=== PATIENT | female | born 1930 | race Caucasian/White ===

== ENCOUNTER 2019-09-29 15:29 | Inpatient (IN) ==
[2019-09-29] MEDS ORDERED: NORCO-5 PO ONE ×2 (16:01→16:51)
--- NOTE | 2019-09-29 16:30 | Diag Imaging Result Doc PS360 ---
EXAM: CT THORAX W/O CONTRAST HISTORY: fall TECHNIQUE: CT chest without contrast COMPARISON: None. FINDINGS: There is a small right-sided pleural effusion measuring 2.9 cm posteriorly and inferiorly in the midline. Trace left pleural fluid. The heart is enlarged. Prominent atherosclerosis. The esophagus is dilated and contains fluid. No pneumothoraces. There are tiny nodules scattered bilaterally. There is basilar atelectasis. Small sternal fracture. IMPRESSION: 1.Small sternal fracture, but no other injury 2.Cardiomegaly with small effusions 3.Tiny nonspecific scattered lung nodules. This exam was performed using automated exposure control, adjustment of mA or kV according to patient size, and/or use of iterative reconstruction technique. Electronically signed by Fabian Ruth 09/29/2019 4:27 PM
--- NOTE | 2019-09-29 16:33 | Diag Imaging Result Doc PS360 ---
EXAM : CT HEAD/C-SPINE W/O CONTRAST HISTORY: fall face injury TECHNIQUE: 1. CT head without contrast 2. CT cervical spine without contrast COMPARISON: 06/15/2018 FINDINGS: Head: No parenchymal hemorrhage. No epidural or subdural hematoma. No subarachnoid hemorrhage. There is atrophy with chronic microvascular ischemic changes. No mass identified on this noncontrasted exam. No hydrocephalus. No skull fracture. Cervical spine: There is good alignment to the cervical spine. No precervical soft tissue swelling. No subluxation. No fracture. IMPRESSION: Head: No hemorrhage. No injury. Cervical spine: No acute fracture. This exam was performed using automated exposure control, adjustment of mA or kV according to patient size, and/or use of iterative reconstruction technique. Electronically signed by Fabian Ruth 09/29/2019 4:31 PM
--- NOTE | 2019-09-29 16:39 | Diag Imaging Result Doc PS360 ---
EXAM: CT MAXILLOFACIAL(SINUS) W/O CO HISTORY: fall injury TECHNIQUE: CT face without contrast COMPARISON: None. FINDINGS: There are small air-fluid levels in the maxillary sinuses. A small amount of mucosal thickening is in the right sphenoid sinus. No fracture or dislocation. Prominent atherosclerosis in the carotid bulbs. IMPRESSION: No acute bony injury. Electronically signed by Fabian Ruth 09/29/2019 4:37 PM
--- NOTE | 2019-09-29 17:01 | Diag Imaging Result Doc PS360 ---
EXAM: SHOULDER-RIGHT - 09/29/2019 HISTORY: fall injury TECHNIQUE: Right shoulder three views COMPARISON: 06/15/2018 FINDINGS: Exam is suboptimal due to the lack of an external rotation view. There is no discrete fracture or dislocation identified. There is an old fracture deformity mid shaft of the clavicle noted. IMPRESSION: No discrete fracture or dislocation. And external rotation view is recommended, however. Electronically signed by Sridhar Ramirez 09/29/2019 4:58 PM
--- NOTE | 2019-09-29 18:00 | PROVIDER DOCUMENTATION ---
This chart was entered by Amparo Aguilera Scribe, acting as scribe for Bruce Thurman MD. HPI-Head Injury - General Chief Complaint: Fall Stated Complaint: FALL Time Seen by Provider: 09/29/19 15:49 Source: patient, family Allergies/Adverse Reactions: Patient Allergies Allergy/AdvReac Type Severity Reaction Status Date / Time Iodinated Contrast Media Allergy Unknown Verified 06/23/18 08:21 [IV Dye] Home Medications: Home Medication List Medication Instructions Recorded Confirmed Last Taken Type Cetirizine [Zyrtec] 10 mg PO DAILY 09/29/19 09/29/19 Unknown History Enalapril Maleate 20 mg PO DAILY 09/29/19 09/29/19 Unknown History Furosemide [Lasix] 40 mg PO DAILY 09/29/19 09/29/19 Unknown History Nebivolol HCl [Bystolic] 20 mg PO DAILY 09/29/19 09/29/19 Unknown History Potassium Chloride 20 meq PO DAILY 09/29/19 09/29/19 Unknown History Tramadol [Ultram] 50 mg PO BID 09/29/19 09/29/19 Unknown History Warfarin [Coumadin] 3 mg PO DAILY 09/29/19 09/29/19 Unknown History - History of Present Illness-Head Injury Nature of Presenting Problem: Patient is a 89 year old female who presents to the ED via EMS after having a head injury. States she was walking with her walker and her knees locked and she fell. Denies LOC. States pain to right side face, right shoulder and chest. Report dizziness after fall. States she is on Warfarin. Head Injury Location: reports: other (right side face) Other injuries associated with incident:: reports: chest, RUE (shoulder) Quality of Pain: reports: aching Severity: reports: mild Onset/Duration: reports: just prior to arrival Timing: reports: still present Method of Injury: reports: fell Loss of Consciousness: no loss of consciousness Injury Associated Symptoms: reports: dizziness Locality of Occurance: Home Similar Symptoms Previously?: No Recently seen or treated by another doctor?: No Review of Systems - Adult - REVIEW OF SYSTEMS - ADULT Constitutional: reports: no symptoms reported Eyes: reports: no symptoms reported Ears, Nose, Mouth & Throat: reports: no symptoms reported Cardiovascular: reports: no symptoms reported Respiratory: reports: no symptoms reported Gastrointestinal: reports: no symptoms reported Genitourinary: reports: no symptoms reported Musculoskeletal: reports: see HPI, other (pain to right side face, right shoulder and chest). denies: back pain, neck pain Integumentary: reports: no symptoms reported Neurological: reports: see HPI, dizziness/vertigo (dizziness), other (head injury without LOC). denies: headache/migraines Psychiatric: reports: no symptoms reported Endocrine: reports: no symptoms reported Hematologic/Lymphatic: reports: no symptoms reported Allergic/Immunologic: reports: no symptoms reported All Other Systems: Reviewed and Negative Past History - Adult - PAST MEDICAL HISTORY-ADULT Review of Records: reports: Old Records Reviewed, Nursing Assessment Review, Medications Reviewed, Social history reviewed & non-contributory. Major Childhood Illnesses: reports: denies history Cardiovascular: reports: A-Fib, HTN Respiratory: reports: denies history Gastrointestinal: reports: denies history Obstetrical/Gynecological: reports: denies history Genitourinary: reports: denies history Musculoskeletal: reports: other (neuropathy) Neurological: reports: denies history Endocrine/Immune: reports: denies history Other Conditions: reports: denies history - PRIOR SURGERIES/PROCEDURES Surgical/Procedure History: reports: hysterectomy, back/neck - IMMUNIZATION STATUS Childhood Immunizations: See Nurse Assessment Flu Vaccine: See Nurse Assessment - FAMILY HISTORY Family History: reviewed, not pertinent - SOCIAL HISTORY Smoking: denies Substance Use: denies Living Situation: family Physical Exam- Neurological - Physical Exam-Neuro Initial Vital Signs Reviewed: Yes General Appearance: alert, no apparent distress. negative: lethargic HENMT: moist mucous membranes, other (abrasion to right cheek, right eyebrow, and right side of nose. ecchymosis and swelling to right eyebrow.). negative: angioedema Head Injury: ecchymosis (right eyebrow), swelling (right eyebrow), other (abrasion to right cheek, right eyebrow, and right side of nose). negative: active bleeding Neck: normal inspection. negative: limited range of motion, tender lateral Respiratory: lungs clear, normal breath sounds, other (anterior chest wall tenderness). negative: crackles Cardiovascular: normal peripheral pulses, regular rate, rhythm. negative: tachycardia Abdominal Exam: normal bowel sounds, non tender, soft. negative: guarding Extremity: tenderness (right posterior shoulder and right scapula). 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 negative: facial droop Integumentary: abrasion(s) (abrasion to right cheek, right eyebrow, and right side of nose.), ecchymosis (right eyebrow), swelling (right eyebrow). negative: laceration(s) Psych/Mental Status: normal mood/affect, oriented x 3. negative: anxious Progress - PLAN OF CARE/RESULTS Progress/Plan/Lab Results: Vital Signs - 8 hr 09/29/19 15:31 09/29/19 16:41 09/29/19 17:50 Temperature 97.9 F Pulse Rate 96 H 88 92 H Respiratory Rate 16 18 12 Blood Pressure 184/109 182/122 165/109 O2 Sat by Pulse Oximetry 98 94 L 96 Orders Category Date Time Status CT HEAD/C-SPINE W/O CONTRAST [CT] Stat Exams 09/29/19 15:[address] MAXILLOFACIAL(SINUS) W/O CO [CT] Stat Exams 09/29/19 16:[address] THORAX W/O CONTRAST [CT] Stat Exams 09/29/19 16:00 Completed SHOULDER 1 VIEW RIGHT [RAD] Stat Exams 09/29/19 18:07 Completed SHOULDER-RIGHT [RAD] Stat Exams 09/29/19 16:02 Completed Hydrocodone/APAP 5 mg/325 mg [[place]-5] Med 09/29/19 16:01 Discontinued 1 each PO NOW ONE Hydrocodone/APAP 5 mg/325 mg [[place]-5] Med 09/29/19 16:51 Discontinued 1 each PO NOW ONE - XRAY 1 XRAY: Right XRAY Study: Shoulder Impression: See EMR Report ( EXAM: SHOULDER-RIGHT - 09/29/2019 HISTORY: fall injury TECHNIQUE: Right shoulder three views COMPARISON: 06/15/2018 FINDINGS: Exam is suboptimal due to the lack of an external rotation view. There is no discrete fracture or dislocation identified. There is an old fracture deformity mid shaft of the clavicle noted. IMPRESSION: No discrete fracture or dislocation. And external rotation view is recommended, however. Electronically signed by Sridhar Ramirez 09/29/2019 4:58 PM 09/29/19 [id number] Interpreting Physician: Sridhar Ramirez MD Dictated Date/Time: 09/29/19 3916 cc: Bruce Thurman MD; None,PCP) - CT/MRI 1 CT Study: Sinuses Impression: See EMR Report ( EXAM: CT MAXILLOFACIAL(SINUS) W/O CO HISTORY: fall injury TECHNIQUE: CT face without contrast COMPARISON: None. FINDINGS: There are small air-fluid levels in the maxillary sinuses. A small amount of mucosal thickening is in the right sphenoid sinus. No fracture or dislocation. Prominent atherosclerosis in the carotid bulbs. IMPRESSION: No acute bony injury. Electronically signed by Fabian Ruth 09/29/2019 4:37 PM 09/29/19 1637 Interpreting Physician: Fabian Ruth MD Dictated Date/Time: 09/29/19 1634 cc: Bruce Thurman MD; None,PCP) 2 CT Study: Thorax Impression: See EMR Report ( EXAM: CT THORAX W/O CONTRAST HISTORY: fall TECHNIQUE: CT chest without contrast COMPARISON: None. FINDINGS: There is a small right-sided pleural effusion measuring 2.9 cm posteriorly and inferiorly in the midline. Trace left pleural fluid. The heart is enlarged. Prominent atherosclerosis. The esophagus is dilated and contains fluid. No pneumothoraces. There are tiny nodules scattered bilaterally. There is basilar atelectasis. Small sternal fracture. IMPRESSION: 1.Small sternal fracture, but no other injury 2.Cardiomegaly with small effusions 3.Tiny nonspecific scattered lung nodules. This exam was performed using automated exposure control, adjustment of mA or kV according to patient size, and/or use of iterative reconstruction technique. Electronically signed by Fabian Ruth 09/29/2019 4:27 PM 09/29/19 1627 Interpreting Physician: Fabian Ruth MD Dictated Date/Time: 09/29/19 1623 cc: Bruce Thurman MD; None,PCP) 3 CT Study: Cervical Spine, Head Impression: See EMR Report ( EXAM : CT HEAD/C-SPINE W/O CONTRAST HISTORY: fall face injury TECHNIQUE: 1. CT head without contrast 2. CT cervical spine without contrast COMPARISON: 06/15/2018 FINDINGS: Head: No parenchymal hemorrhage. No epidural or subdural hematoma. No subarachnoid hemorrhage. There is atrophy with chronic microvascular ischemic changes. No mass identified on this noncontrasted exam. No hydrocephalus. No skull fracture. Cervical spine: There is good alignment to the cervical spine. No precervical soft tissue swelling. No subluxation. No fracture. IMPRESSION: Head: No hemorrhage. No injury. Cervical spine: No acute fracture. This exam was performed using automated exposure control, adjustment of mA or kV according to patient size, and/or use of iterative reconstruction technique. Electronically signed by Fabian Ruth 09/29/2019 4:31 PM 09/29/19 1631 Interpreting Physician: Fabian Ruth MD Dictated Date/Time: 09/29/19 1628 cc: Bruce Thurman MD; None,PCP) - CONSULTS/PCP/HOSPITALIST Notification #1 *Consult/PCP/Hospitalist*: Dr. Churchill Time Discussed: 18:53 Reason/Comments: fall, hypertenion Consult Disposition: Admit Departure - Departure Date of Disposition Decision: 09/29/19 Time of Disposition Decision: 18:58 DIAGNOSIS: Sternal fracture, Fall, Hypertension Disposition: ADMITTED INPATIENT 09 Certified Medical Emergency: Emergent Condition: Good Referrals and Follow-Ups: None,PCP [Primary Care Provider] - - Critical Care Note This patient required my direct & personal management of CC.: No Attestation - Physician/ CHRISTAL Attestation Patient care was provided by Advanced Practice Provider:: No The physician spent face to face time with patient:: Yes Advanced Practice Provider documentation review:: Supervising physician onsite and consulted in the evaluation and care of this patient. The physician did have a face to face encounter with the patient. This chart was documented by the indicated scribe, (Amparo Aguilera Scribe) and accurately reflects the services I performed and decisions made by me, Bruce Thurman MD, as attested by the provider's signature.
--- NOTE | 2019-09-29 18:45 | Diag Imaging Result Doc PS360 ---
EXAM: SHOULDER 1 VIEW RIGHT - 09/29/2019 HISTORY: pain TECHNIQUE: Right shoulder one view COMPARISON: Prior right shoulder radiographs of 09/29/2019 FINDINGS: Exam consists of an AP external rotation view with the upper arm mildly extended. There is no fracture or dislocation identified. IMPRESSION: No evidence of fracture or dislocation. Electronically signed by Sridhar Ramirez 09/29/2019 6:42 PM
[2019-09-29] MEDS ORDERED: MORPHINE IV ONE (22:37)
[2019-09-30 08:17] LABS: URINE SOURCE CLEAN CATCH
[2019-09-30 08:20] LABS: BILIRUBIN URINE NEGATIVE (NEGATIVE); BLOOD URINE MODERATE (NEGATIVE); COLOR YELLOW; GLUCOSE URINE NEGATIVE (NEGATIVE); KETONE URINE NEGATIVE (NEGATIVE); LEUKOCYTES URINE NEGATIVE (NEGATIVE); NITRITE URINE NEGATIVE (NEGATIVE); PH URINE 6.5; PROTEIN URINE 70 mg/dL (NEGATIVE); SP GRAVITY URINE 1.015; TURBIDITY URINE CLEAR (CLEAR); UROBILINOGEN URINE NORMAL (NORMAL)
[2019-09-30 08:21] LABS: UR EPITHELIAL CELLS <10 /HPF (<10); URINE BACTERIA NEGATIVE /HPF; URINE RBC TNTC /HPF (<10); URINE WBC <10 /HPF (<10)
[2019-09-30] MEDS: MORPHINE IV PRN ×3 (08:47→17:36)
[2019-09-30 09:29] LABS: BASO# 0.02 X1000 (0.0-0.2); BASO% 0.3 % (0.0-0.8); EOS# 0.02 X1000 (0.0-0.7); EOS% 0.3 % (0.0-10.0); HEMATOCRIT 35.8 % (37.0-47.0); HEMOGLOBIN 11.1 g/dL (12.0-16.0); IMM GRAN# 0.03 X1000 (0.0-0.04); IMM GRAN% 0.4 % (0.0-0.5); LYMPH# 0.53 X1000 (1.2-3.4); LYMPH% 7.9 % (20.5-51.1); MCH 30.4 PG (27-31); MCV 98.1 FL (81-99); MONO% 13.5 % (1.7-9.3); MPV 10.4 FL (7.4-10.4); NEUT# 5.19 X1000 (1.4-6.5); NEUT% 77.6 % (42.2-75.2); PLT 90 X1000 (130-400); RBC 3.65 XMIL (4.2-5.4); RDW 14.6 % (11.5-14.5); WBC 6.69 X1000 (4.8-10.8)
[2019-09-30 09:34] LABS: CALCIUM 8.7 mg/dL (8.8-10.2); CREATININE 1.1 mg/dL (0.5-0.9)
[2019-09-30 09:36] LABS: INR 1.77; PROTIME 21.6 Seconds (11.0-16.0)
[2019-09-30] MEDS ORDERED: ZOFRAN IV PRN ×2 (09:41→16:44)
[2019-09-30] MEDS ORDERED: NS 1,000 ML IV ONE (09:42)
[2019-09-30 17:31] LABS: HEMATOCRIT 37.1 % (37.0-47.0); HEMOGLOBIN 11.9 g/dL (12.0-16.0)
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
[2019-09-30] MEDS: ULTRAM PO SCH (20:26)
[2019-09-30] MEDS ORDERED: ULTRAM PO SCH (21:00)
[2019-09-30 23:07] LABS: HEMATOCRIT 35.8 % (37.0-47.0); HEMOGLOBIN 11.4 g/dL (12.0-16.0)
--- NOTE | 2019-10-01 02:16 | HISTORY AND PHYSICAL ---
ADDENDUM: The patient had a ground-level fall, with which she did not pass out. She just fell over, but she hit the ground very hard on the right side of her face and her right shoulder. She sustained a laceration. In any case, she came in for evaluation. Laceration was sutured. She was found to have a sternal fracture, which was not completely a [id number] fracture. It was in the posterior portion and distal portion of her sternum. Although it is comminuted or at least there is a free edge, there is no evidence of hematoma or mediastinal damage; however, she is coagulopathic on Coumadin. We are going to monitor her for pain control, make sure there is no bleeding. I discussed the case briefly with Dr. Doss, as did the nurse practitioner. We are going to transfer her to the main hospital for closer monitoring, although at this point there are probably going to be nonsurgical measures. I have held her warfarin but I have not reversed her at this point. We will keep an eye on her hemoglobin and hematocrit, and her electrolytes. This was a [id number] encounter note with EHSAN Partida, and we also discussed the case with Dr. Doss and Dr. Carlin. cc: Kd Patrick MD
[2019-10-01] MEDS: MORPHINE IV PRN (02:21)
[2019-10-01 05:30] LABS: INR 1.78; PROTIME 21.1 Seconds (11.0-16.0)
[2019-10-01 05:56] LABS: CALCIUM 8.6 mg/dL (8.8-10.2); CREATININE 1.3 mg/dL (0.5-0.9); POTASSIUM 4.1 mmol/L (3.5-5.1)
[2019-10-01 06:12] LABS: BASO# 0.02 X1000 (0.0-0.2); BASO% 0.3 % (0.0-0.8); EOS# 0.16 X1000 (0.0-0.7); EOS% 2.1 % (0.0-10.0); HEMATOCRIT 38.2 % (37.0-47.0); IMM GRAN# 0.02 X1000 (0.0-0.04); IMM GRAN% 0.3 % (0.0-0.5); LYMPH# 0.88 X1000 (1.2-3.4); LYMPH% 11.3 % (20.5-51.1); MCH 31.3 PG (27-31); MCHC 31.4 g/dL (33-37); MCV 99.7 FL (81-99); MONO# 1.24 X1000 (0.11-0.59); NEUT# 5.45 X1000 (1.4-6.5); PLT 76 X1000 (130-400); RBC 3.83 XMIL (4.2-5.4); RDW 14.8 % (11.5-14.5); WBC 7.77 X1000 (4.8-10.8)
--- NOTE | 2019-10-01 07:22 | GENERAL SURGERY CONSULTATION ---
DATE: 09/30/2019 REQUESTING PHYSICIAN: Dr. Patrick. REASON FOR CONSULTATION: Consult is concerning a fall from standing with sternal fracture. HISTORY OF PRESENT ILLNESS: An 89-year-old female who apparently fell from standing while at home. She was seen in the emergency department and had multiple imaging done after her fall. She apparently struck her head. The only thing noted on the imaging was that she had a sternal fracture. She is currently complaining of pain and some pain in her shoulder but otherwise is doing okay hemodynamically. I was asked to weigh an opinion. PAST MEDICAL HISTORY: Includes atrial fibrillation, neuropathy, and hypertension. PAST SURGICAL HISTORY: Includes hysterectomy, spinal fusion, osteomyelitis, and previous punctured lung. SOCIAL HISTORY: Nonsmoker. ALLERGIES: Iodinated contrast media. CURRENT HOME MEDICATIONS: Reviewed. Of note, she is on Coumadin. FAMILY HISTORY: Reviewed with the patient and noncontributory. REVIEW OF SYSTEMS: A full 14 systems were reviewed and negative except as specified in the HPI. PHYSICAL EXAMINATION: Vital Signs: The patient is currently afebrile. Her vital signs are stable. General Examination: No acute distress. HEENT: Normocephalic, atraumatic. Pupils equal, round, and reactive to light. There is some ecchymosis noted by the right eye and maxilla. Neck: Supple. Trachea midline. Cardiovascular: Irregularly irregular. Lungs: Grossly clear. Chest Wall: Some tenderness noted in the sternum. Abdomen: Soft, nontender, nondistended. Extremities: Moves all extremities. Neurologic: Grossly intact. Skin: Ecchymoses noted as above. Vascular: All extremities perfused. Neurologic: Grossly intact. LABORATORY DATA: White blood cell count is 6, hematocrit is 37, platelet count 90,000. Remainder of labs reviewed. Imaging reviewed and noted above. ASSESSMENT/PLAN: An 89-year-old female with fall from standing with sternal fracture. Sternal fracture. At this time, I agree with admission. She has an electrocardiogram and echocardiogram ordered. She is going to be on remote telemetry. We will just follow up with those. I suspect she is going to be fine and we will be able to discharge in the near future but we will just need to monitor her. I appreciate the consult. cc: Abad Doss MD
[2019-10-01] MEDS ORDERED: LASIX PO SCH (09:00)
[2019-10-01] MEDS ORDERED: KLOR-CON PO SCH (09:00)
[2019-10-01] MEDS ORDERED: BYSTOLIC PO SCH (09:00)
[2019-10-01] MEDS ORDERED: ZYRTEC PO SCH (09:00)
[2019-10-01] MEDS ORDERED: VASOTEC PO SCH ×2 (09:00)
--- NOTE | 2019-10-01 09:22 | ECHO REPORT ---
ORDER DATE: 09/30/2019 MEASUREMENTS: Septal thickness 1.1, left ventricular internal diameter diastole 3.8. Left atrium 5.3. Aortic root 2.8. SUMMARY: 1. Technically difficult study. 2. Moderate fibrocalcific changes of aortic valve demonstrated with reduced aortic valve leaflet mobility demonstrated. Doppler of aortic valve is suboptimal. Based on 2-dimensional images, aortic stenosis appears to be probably moderate but is not severe. Mitral annular calcification is demonstrated with mild to moderate mitral regurgitation. Tricuspid valve is without evidence of structural abnormality while pulmonic valve is not well demonstrated. There is moderate to severe tricuspid regurgitation. The estimated systolic PA pressure by Doppler is 50 to 55 mmHg suggesting moderate pulmonary hypertension. The aortic root is normal size. 3. Normal left ventricular chamber size with mild concentric left hypertrophy is suggested on 2- dimensional images. Estimated left ejection fraction appears to be at least 65%. No regional wall motion abnormalities are evident. Left atrium is moderate to severely enlarged. The right atrium is moderately enlarged. Right ventricle is normal size with grossly preserved right ventricular systolic function. 4. No pericardial effusion. 5. Atrial fibrillation during study. cc: MD Kd Desir MD
--- NOTE | 2019-10-01 09:47 | GENERAL SURGERY PROGRESS NOTE ---
DATE: 10/01/2019 SUBJECTIVE: Patient seems to be doing okay. She had some cramping in her legs, but otherwise is doing fine. OBJECTIVE: Vital Signs: Patient is currently afebrile. Her vital signs are stable. General: No acute distress. HEENT: Some ecchymosis noted to the right side of her face, but otherwise atraumatic. Pupils equal, round, reactive to light. Mucous membranes moist. Oropharynx benign. Neck: Supple. Trachea midline. Cardiovascular: Regular rate and rhythm. Lungs: Grossly clear. Some chest wall tenderness. Abdomen: Soft, nontender, nondistended. Extremities: Moves all extremities. Neurologic: Grossly intact. Skin: No signs of jaundice but bruising as noted above. LABORATORY: Currently pending. ASSESSMENT AND PLAN: An 89--year-old female status post fall from standing with blunt chest trauma and sternal fracture. 1. Sternal fracture. At this time, continue supportive care. She does have EKGs an echos ordered. We will follow up with those results. Otherwise, I think she is doing well, and if she remains without any cardiac abnormalities, she can likely be discharged here soon. cc: Abad Doss MD
[2019-10-01] MEDS: LASIX PO SCH (09:49)
[2019-10-01] MEDS: KLOR-CON PO SCH (09:50)
[2019-10-01] MEDS: ZYRTEC PO SCH (09:50)
[2019-10-01] MEDS: BYSTOLIC PO SCH (09:53)
[2019-10-01] MEDS: ULTRAM PO SCH ×2 (11:21→21:51)
--- NOTE | 2019-10-01 13:33 | PROGRESS NOTE ---
DATE: 10/01/2019 SUBJECTIVE: This patient is feeling better. She is still complaining of some chest pain but she is not having cough, nausea, vomiting, or hemoptysis. Echocardiogram has been done and did not show any acute problem. Pending EKG which has been ordered again. I had a conversation with the patient and the family members at the bedside. She has been on warfarin and she has been on this treatment for a very long time. It is a little bit worrisome if this patient starts falling more frequently due to possible life-threatening bleeding. They seem to understand that. The patient is completely awake, alert, and oriented x3. She is answering all my questions. She is hard of hearing. I do believe this patient can be discharged tomorrow. She seems to be medically stable, pending EKG. OBJECTIVE: Vital Signs: Temperature 97.5 degrees, pulse 102, respiratory rate 14, blood pressure 149/82, oxygen saturation 97% on 3 L of nasal cannula. HEENT: Head normocephalic. She does have a bruise to the right eye and periorbital area. She also has a small wound/laceration on the right side of her nose. PERRLA. Neck: Supple. No JVD. Central trachea. Chest: Tender to palpation at the level of the sternal area. She complains of a little bit of pain with deep inspiration but her lungs are clear. Cardiovascular: RRR. Abdomen: Soft, nontender, nondistended. No hepatosplenomegaly. Extremities: No edema, no clubbing, no cyanosis. Neurological Examination: The patient is alert. She is oriented x3. No focal deficits. Laboratory: WBCs 7.7, hemoglobin 12, hematocrit 38.2, and platelets 76,000. Sodium 139, potassium 4.1, chloride 103, bicarbonate 26, BUN 37, creatinine 1.3, glucose 127, calcium 8.6. ASSESSMENT AND PLAN: 1. Fall from a standing position with a sternal fracture. Surgery department on board and following this patient closely. Echocardiogram did not show any acute abnormality. Pending electrocardiogram. Chest CT scan seems to be stable, showing a small sternal fracture but no other injury, cardiomegaly with small effusion, and tiny nonspecific scattered lung nodules. For now, we will continue with pain medication. She looks stable. She is basically on her home medications and we will just keep an eye on her today. She used to be on warfarin which has been stopped for now but probably, we need to resume that probably tomorrow or the day after tomorrow. 2. Hypertension, stable. Continue with the same management. 3. History of atrial fibrillation. Like I mentioned before, we have stopped the warfarin for now. Hopefully, we are going to be able to restart this treatment soon. I discussed the case with the son at the bedside and also the patient. I suggested to stop the warfarin in the future if she is still falling or if she is doing this frequently. 4. She seems to be better. She is still complaining of some chest pain due to the sternal fracture. Echocardiogram did not show any acute issues. Pending electrocardiogram. I will monitor this patient one more night and hopefully tomorrow, she can be discharged and probably we can restart also her warfarin. cc: Ricardo Contreras MD
--- NOTE | 2019-10-01 17:44 | EKG Report ---
Test Performed on : 10/01/2019 11:30:00 AM Test Reason : Chest trauma Blood Pressure : / mmHG Vent. Rate : 098 BPM Atrial Rate : 416 BPM P-R Int : 000 ms QRS Dur : 086 ms QT Int : 340 ms P-R-T Axes : 000 -17 -07 degrees QTc Int : 434 ms Atrial fibrillation. Abnormal ECG When compared with ECG of 30-SEP-2019 18:09, (Unconfirmed) No significant change was found Confirmed by Yanira IZQUIERDO, Vamshi ([id number]) on 10/02/2019 8:31:11 AM
--- NOTE | 2019-10-02 06:29 | GENERAL SURGERY PROGRESS NOTE ---
DATE: 10/02/2019 SUBJECTIVE: Patient seems to be doing okay. She is resting. OBJECTIVE: Vital Signs: Patient is currently afebrile. Her vital signs are stable. General: No acute distress. HEENT: Normocephalic, atraumatic. Pupils equal, round, and reactive to light. Mucous membranes moist. Oropharynx benign. Neck: Supple. Trachea midline. Cardiovascular: Regular rate and rhythm. Lungs: Grossly clear. Chest wall still with some tenderness. Abdomen: Soft. Nontender. Nondistended. Extremities: Moves all extremities. Neurologic: Grossly intact. Skin: There are some bruises noted on the face. Vascular: All extremities perfused. LABORATORY: Reviewed from yesterday. EKG and echo were normal. ASSESSMENT AND PLAN: An 89-year-old female status post fall from standing with blunt chest trauma and sternal fracture. Sternal fracture. At this time, I think the patient has done relatively well. She can probably be discharged home and follow up with her primary care physician. cc: Abad Doss MD
--- NOTE | 2019-10-02 07:33 | EKG Report ---
Test Performed on : 09/30/2019 6:09:38 PM Test Reason : Fall,dizziness,afib Blood Pressure : / mmHG Vent. Rate : 107 BPM Atrial Rate : 084 BPM P-R Int : 000 ms QRS Dur : 084 ms QT Int : 342 ms P-R-T Axes : 000 -23 027 degrees QTc Int : 456 ms Atrial fibrillation. with rapid ventricular response. Nonspecific ST abnormality Abnormal ECG When compared with ECG of 30-NOV-2017 18:25, No significant change was found Confirmed by Yanira IZQUIERDO, Vamshi ([id number]) on 10/02/2019 8:28:06 AM
[2019-10-02 08:00] LABS: CREATININE 1.8 mg/dL (0.5-0.9)
[2019-10-02] MEDS: ZYRTEC PO SCH (09:46)
[2019-10-02] MEDS: BYSTOLIC PO SCH (09:46)
[2019-10-02] MEDS: ULTRAM PO SCH (09:46)
[2019-10-02] MEDS: KLOR-CON PO SCH (09:47)
[2019-10-02] MEDS: LASIX PO SCH (09:47)
--- NOTE | 2019-10-02 13:13 | PROGRESS NOTE ---
DATE: 10/02/2019 SUBJECTIVE: This morning, Ms. Portillo refers to be doing well. She denies any new complaints. She still has been hurting in the chest. OBJECTIVE: Vital Signs: Blood pressure is 147/81, pulse of 99, respiration are 17, temperature is 97.8 degrees. General Examination: Ms. Portillo is an 89-year-old, elderly, female. She is in bed. No distress. HEENT: Mucosa is pink and moist. Anicteric. Acyanotic. Neck: Supple. Chest: Good air entry bilaterally. There were no crepitations. No rhonchi. Cardiovascular: Regular rate and rhythm. No murmurs, no rubs, no gallops. GI: Abdomen is soft, nontender. Bowel sounds present. There is no hepatosplenomegaly. Extremities: No pedal edema. Distal pulses are present. SEAMER: The patient is awake, alert, and oriented. Musculoskeletal: Mild tenderness at the sternum. The patient also has tenderness mobilizing the right lower extremity, especially at the knee level. The knee is swollen and minimally tender but no erythematous changes over the skin. Laboratory Data: Chemistry shows creatinine of 1.8. The patient's echocardiogram showed an ejection fraction of 65%. ASSESSMENT: 1. Status post mechanical fall. 2. Hypertension. 3. History of atrial fibrillation, currently rate controlled. 4. Small sternal fracture due to blunt trauma to the chest, noted. 5. Left knee osteoarthritis. 6. Generalized weakness and deconditioning. Physical therapy has been consulted and patient was evaluated yesterday. 7. Acute on chronic kidney injury with creatinine up to 1.8. I have discontinued the patient's ARBs as well as the Lasix since she does not look volume overloaded to see if we avoid any more kidney injury. cc: Yariel Freitas MD
[2019-10-03] MEDS: ULTRAM PO SCH ×4 (00:26→22:33)
[2019-10-03 06:50] LABS: HEMATOCRIT 35.4 % (37.0-47.0); HEMOGLOBIN 11.2 g/dL (12.0-16.0); MCH 31.7 PG (27-31); MCHC 31.6 g/dL (33-37); MCV 100.3 FL (81-99); RBC 3.53 XMIL (4.2-5.4); RDW 14.7 % (11.5-14.5); WBC 9.37 X1000 (4.8-10.8)
[2019-10-03 07:41] LABS: ALB/GLOB RATIO 0.8; ALBUMIN 2.5 g/dL (3.5-5.0); CALCIUM 8.4 mg/dL (8.8-10.2); CREATININE 1.7 mg/dL (0.5-0.9); POTASSIUM 5.1 mmol/L (3.5-5.1); TOTAL BILIRUBIN 0.9 mg/dL (0.20-1.00); TOTAL PROTEIN 5.7 g/dL (6.3-8.3)
[2019-10-03] MEDS: ZYRTEC PO SCH (08:43)
[2019-10-03] MEDS: BYSTOLIC PO SCH (08:43)
[2019-10-03] MEDS: KLOR-CON PO SCH (08:43)
[2019-10-03 09:48] LABS: IRON SATURATION 24 %; TIBC 130 ug/dL; TOTAL IRON 31 ug/dL (49-151); UNBOUND IRON 99 ug/dL (112-346)
[2019-10-03] MEDS ORDERED: NORCO-5 PO PRN (11:40)
[2019-10-03] MEDS: NS 1,000 ML IV SCH (12:01)
[2019-10-03] MEDS: FOLIC ACID PO SCH (12:23)
--- NOTE | 2019-10-03 13:10 | GENERAL SURGERY PROGRESS NOTE ---
DATE: 10/03/2019 SUBJECTIVE: The patient seems to be doing okay. OBJECTIVE: Vital Signs: The patient is currently afebrile. She does have a heart rate in the low 100s, but oxygen saturation seems to be doing fine. General: No acute distress. Resting comfortably. HEENT: Normocephalic, atraumatic. Pupils equal, round, reactive to light. Mucous membranes moist. Oropharynx benign. Neck: Supple. Trachea midline. Cardiovascular: Regular rate and rhythm. Lungs: Grossly clear. Chest wall still has some tenderness. Abdomen: Soft, nontender, nondistended. Extremities: Moves all extremities. Neurologic: Grossly intact. Skin: No signs of jaundice. Vascular: All extremities perfused. LABORATORY DATA: None this morning as of yet. ASSESSMENT AND PLAN: An 89-year-old female status post blunt chest trauma from fall from standing. Blunt chest trauma. At this time, the patient seems to be doing well. She is hemodynamically stable. Will continue to follow while she is in the hospital. Will continue nonoperative conservative management of sternal fracture. cc: Abad Doss MD
--- NOTE | 2019-10-03 13:54 | PROGRESS NOTE ---
DATE: 10/03/2019 SUBJECTIVE: This morning Ms. Portillo refers to be doing fairly okay. Still some standing pain. Ms. Portillo also refers to be extremely dry. You could hardly hear what she is saying because of mouth dryness. OBJECTIVE: Vital signs: Blood pressure is 135/97, pulse of 108, respiration is 12, temperature is 97.6 degrees. General: Ms. Portilol is an 89-year-old elderly female. She is in bed. She is not in any cardiopulmonary distress. Mucosa is pink and dry. Anicteric. Acyanotic. Neck: Supple. Chest: Good air entry bilaterally. There are no crepitations, no rhonchi. Cardiovascular: Slightly tachycardic but no murmurs, no rubs, no gallops. Abdomen: Soft, nontender. Bowel sounds present. Extremities: No pedal edema. Distal pulses present. 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 There is no focal deficit. Musculoskeletal: There is mild tenderness on palpation of the sternum. The right lower extremity is slightly painful mobilizing at the level of the knee, but for the most part unremarkable. LABORATORY DATA: WBC is 9.37, hemoglobin is 11.2, platelet count of 105,000. Chemistry is also reviewed. Creatinine is 1.7, BUN is up to 54. Folate is 7.7. ASSESSMENT: 1. Status post mechanical fall resulting in a small sternum fracture. The patient has been evaluated by general surgery. For now, multiple investigations have not shown any trauma to the lungs or the mediastinal structures. 2. Hypertension, controlled. 3. Clinical volume depletion. The patient looks remarkably dry. She was on Lasix and ARB's a couple days ago. These have been discontinued. We are going to hydrate her gently over the course of 24 hours to get her hydration status better. 4. Acute on chronic kidney failure. 5. Left knee osteoarthritis. The patient is on pain medications and physical therapy is on board. 6. Generalized weakness and deconditioning. 7. History of atrial fibrillation currently rate controlled. The patient is on Bystolic for blood pressure control. She is on Coumadin for DVT prophylaxis. INR 3 days ago was 1.78. We are going to start her back on her Coumadin and continue to monitor her INR. 8. Macrocytosis with folate deficiency. We will start the replacement. PLAN: In general, I think Ms. Portillo is doing well. However, she looks remarkably volume depleted this morning. BUN has gone up to 54. We are going to hydrate her gently over the course of today and re-evaluate her in the morning. If her hydration status has significantly improved, we will get her discharged and encouraged her to continue oral hydration. cc: Yariel Freitas MD MTDD
[2019-10-04] MEDS: NS 1,000 ML IV SCH ×2 (01:39→19:19)
[2019-10-04 07:43] LABS: ALBUMIN 2.4 g/dL (3.5-5.0); CALCIUM 8.1 mg/dL (8.8-10.2); CREATININE 1.9 mg/dL (0.5-0.9); PHOSPHORUS 3.8 mg/dL (2.7-4.5); POTASSIUM 5.2 mmol/L (3.5-5.1)
[2019-10-04] MEDS ORDERED: ALBUTEROL 0.5% INH CONC FOR HYPERKALEMIA INH ONE (08:26)
[2019-10-04] MEDS: BYSTOLIC PO SCH (09:41)
[2019-10-04] MEDS: FOLIC ACID PO SCH (09:41)
[2019-10-04] MEDS: ULTRAM PO SCH ×2 (09:41→20:49)
[2019-10-04] MEDS: ZYRTEC PO SCH (09:42)
[2019-10-04 11:25] LABS: UR SODIUM 18 mmoll
[2019-10-04 11:27] LABS: UR UREA NITROGEN RANDOM 848 mg/dL
[2019-10-04] MEDS ORDERED: LANOXIN PO ONE (11:28)
[2019-10-04] MEDS: LOKELMA POWDER PACKET PO SCH (12:27)
--- NOTE | 2019-10-04 12:32 | GENERAL SURGERY PROGRESS NOTE ---
DATE: 10/04/2019 SUBJECTIVE: Patient seems to be doing okay. OBJECTIVE: Vital Signs: Patient is currently afebrile but her heart rate in the 130s. General: No acute distress. HEENT: Normocephalic, atraumatic. Some bruising noted around her eye which is healing. Neck: Supple. Trachea midline. Cardiovascular: Irregularly irregular consistent with atrial fibrillation. Lungs: Grossly clear. Chest wall: Some tenderness. Abdomen: Soft, nontender, nondistended. Extremities: Moves all extremities. Neurologic: Grossly intact. Skin: Bruise as noted above. ASSESSMENT AND PLAN: An 89-year-old female with blunt chest trauma. Blunt chest trauma. At this time, we will continue to monitor her while she is in the hospital. No immediate plans for surgical intervention. cc: Abad Doss MD
--- NOTE | 2019-10-04 13:35 | PROGRESS NOTE ---
DATE: 10/04/2019 SUBJECTIVE: This morning Ms. Portillo refers to be doing well. She is talking a lot clearer, and she thinks her hydration status is improving. OBJECTIVE: Vital signs: Blood pressure is 148/86, pulse of 116, respirations 19 and temperature is 98.2 degrees. General exam: Ms. Portillo is an 89-year-old, elderly female. She is in bed, no distress. HEENT: Mucosa is pink, but slightly dry. Anicteric. Acyanotic. Neck: Supple. Chest: Good air entry bilaterally. There were no crepitations, no rhonchi. Cardiovascular: Irregularly irregular. No murmurs. GI/Abdomen: Soft. Bowel sounds present. 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 Musculoskeletal: Mild tenderness over the sternum. LABORATORY DATA: Her chemistry showed the potassium was 5.2 this morning, creatinine is 1.9, BUN was 59. ASSESSMENT: 1. Status post mechanical fall resulting in a small sternum fracture. The patient has been evaluated by General Surgery. Multiple imaging studies have not shown any lung or mediastinal injuries from the trauma. 2. Hypertension, controlled. 3. Clinical volume depletion. Will continue with the gentle intravenous fluids. Lasix and ARBS have been discontinued. 4. Acute on chronic renal failure. We will continue avoiding any nephrotoxin. 5. Left knee osteoarthritis noted. 6. Chronic atrial fibrillation. Heart rate has gone slightly higher with the nebulization. We started her on oral Cardizem and one-time dose of digoxin. Ms. Portillo was on Coumadin for stroke prophylaxis, and we are starting her back on that. 7. Microcytosis with folate deficiency. Patient has been started on replacement. 8. Hyperkalemia. We have given the patient albuterol nebulization and Lokelma as a binder. 9. We are going to repeat her labs this afternoon to follow up on the potassium. PLAN: So, in general, I think Ms. Portillo is getting better. Her hydration status seems to be improving slightly. However, her creatinine went higher this morning, as well as her BUN. Her ARBS and her Lasix have been discontinued. We are going to get an ultrasound of her kidneys, and we will also get urinalysis and re-evaluate her labs later on today. DISPOSITION: I understand Ms. Portillo has a bed at [facility]. I suspect if she continues doing well and her labs look better tomorrow, we can discharge her to rehab. cc: Yariel Freitas MD
[2019-10-04] MEDS: CARDIZEM PO SCH ×2 (14:35→20:50)
--- NOTE | 2019-10-04 15:44 | Diag Imaging Result Doc PS360 ---
EXAM: US RENAL 2 (RETROPER) COMPLETE 10/04/2019 HISTORY: perico/arf TECHNIQUE: Renal ultrasound COMMENT: The kidneys are without evidence of hydronephrosis. They are hyperechoic. The right kidney is 10.3 x 4.1 x 2.7 cm the left is 10 x 5.4 x 4.1 cm. There is a 2.4 cm cyst in the mid left renal cortex. There is a right pleural effusion. The urinary bladder is not distended. IMPRESSION: No evidence of obstructive uropathy. Medical renal disease. Right pleural effusion. Electronically signed by Ray Fofana 10/04/2019 3:41 PM
[2019-10-04 16:11] LABS: CALCIUM 8.2 mg/dL (8.8-10.2); CREATININE 1.6 mg/dL (0.5-0.9); POTASSIUM 4.9 mmol/L (3.5-5.1)
[2019-10-05] MEDS: CARDIZEM PO SCH ×4 (02:57→20:08)
[2019-10-05 07:28] LABS: ALBUMIN 2.2 g/dL (3.5-5.0); CALCIUM 7.9 mg/dL (8.8-10.2); CREATININE 1.8 mg/dL (0.5-0.9); PHOSPHORUS 3.5 mg/dL (2.7-4.5); POTASSIUM 4.7 mmol/L (3.5-5.1)
[2019-10-05] MEDS: ZYRTEC PO SCH (09:10)
[2019-10-05] MEDS: BYSTOLIC PO SCH (09:10)
[2019-10-05] MEDS: ULTRAM PO SCH ×2 (09:11→20:07)
[2019-10-05] MEDS: FOLIC ACID PO SCH (09:11)
[2019-10-05] MEDS: MIRALAX PO SCH (10:53)
[2019-10-05] MEDS: NS 1,000 ML IV SCH (10:54)
--- NOTE | 2019-10-05 11:22 | GENERAL SURGERY PROGRESS NOTE ---
DATE: 10/05/2019 SUBJECTIVE: Patient seems to be doing okay. OBJECTIVE: Vital Signs: The patient is currently afebrile. Her vital signs are stable. General Examination: No acute distress. Cardiovascular: Regular rate and rhythm. Lungs: Grossly clear. Chest Wall: With some mild discomfort. Abdomen: Benign. ASSESSMENT AND PLAN: An 89-year-old female status post blunt trauma to the chest, status post fall from standing. Blunt chest trauma. At this time, the patient seems to be doing well. I agree with transferring her to rehab/long term today. cc: Abad Doss MD
[2019-10-05] MEDS: LOKELMA POWDER PACKET PO SCH (11:45)
[2019-10-05] MEDS: LANOXIN PO SCH (15:19)
--- NOTE | 2019-10-05 18:43 | PROGRESS NOTE ---
DATE: 10/05/2019 SUBJECTIVE: This morning, Ms. Portillo refers to be doing well, but she still says she feels that mouth is dry. OBJECTIVE: Vital signs: Blood pressure is 142/78, pulse of 75, respiration is 17, temperature is 97.7 degrees. General: Ms. Portillo is an 89-year-old, elderly female. She is still in bed. No distress. Mucosa is pink and dry. Anicteric. Acyanotic. Neck: Supple. Chest: Good air entry bilaterally. There are no crepitations, no rhonchi. Cardiovascular: Irregularly irregular, is currently rate controlled. No murmurs. Gastrointestinal: Abdomen is soft, nontender. Bowel sounds present. Extremities: No pedal edema. Central nervous system: Patient is awake, alert, and oriented. Musculoskeletal: Mild tenderness over the stent. LABORATORY DATA: Creatinine is 1.8 and BUN is 62. Rest of chemistry is unremarkable. Patient's urinary studies seem to suggest some prerenal component. ASSESSMENT: 1. Status post mechanical fall resulting in a small sternum fracture. The patient has been evaluated by General Surgery. We are going to continue with pain management. 2. Hypertension controlled. 3. Clinical volume depletion. Improving. The patient continues to be on IV fluids. She still looks dry, so we will hydrate her another 24 hours. 4. Acute on chronic renal failure. Noted. 5. Left knee osteoarthritis. 6. Chronic atrial fibrillation. Better control. Patient is on Cardizem. We have added digoxin. 7. Macrocytosis with folate deficiency. 8. Hyperkalemia. Improved with medical management. 9. Constipation. We will start Ms. Portillo on bowel regimen. PLAN: In general, I think Ms. Portillo is doing fairly okay. She still looks dry. We are going to continue the gentle hydration over another 24 hours and follow up on her kidney functions. If her creatinine remains around the same number as today, I think we will be safe to get her to the rehab. cc: Yariel Freitas MD
[2019-10-05] MEDS ORDERED: COUMADIN PO SCH (21:00)
[2019-10-06] MEDS: NS 1,000 ML IV SCH (01:14)
[2019-10-06] MEDS: CARDIZEM PO SCH ×3 (01:17→13:46)
[2019-10-06 07:56] LABS: HEMATOCRIT 34.4 % (37.0-47.0); HEMOGLOBIN 11.1 g/dL (12.0-16.0); MCH 31.4 PG (27-31); MCHC 32.3 g/dL (33-37); MCV 97.2 FL (81-99); MPV 10.6 FL (7.4-10.4); RBC 3.54 XMIL (4.2-5.4); RDW 14.2 % (11.5-14.5); WBC 6.94 X1000 (4.8-10.8)
[2019-10-06 08:16] LABS: ALBUMIN 2.3 g/dL (3.5-5.0); CALCIUM 8.2 mg/dL (8.8-10.2); CREATININE 1.6 mg/dL (0.5-0.9); PHOSPHORUS 3.5 mg/dL (2.7-4.5); POTASSIUM 4.5 mmol/L (3.5-5.1)
[2019-10-06] MEDS: LANOXIN PO SCH (09:44)
[2019-10-06] MEDS: ZYRTEC PO SCH (09:44)
[2019-10-06] MEDS: FOLIC ACID PO SCH (09:44)
[2019-10-06] MEDS: BYSTOLIC PO SCH (09:44)
[2019-10-06] MEDS: ULTRAM PO SCH (09:45)
[2019-10-06] MEDS: LOKELMA POWDER PACKET PO SCH (09:46)
[2019-10-06] MEDS: MIRALAX PO SCH (09:46)
[2019-10-06 11:19] VITALS: BP 152/72
--- NOTE | 2019-10-06 11:29 | DISCHARGE SUMMARY ---
ADMISSION DATE: 09/29/2019 DISCHARGE DATE: 10/06/2019 DISPOSITION: [facility]. FOLLOWUP: 1. The patient's primary care physician. 2. Dr. Doss. 3. [facility]. CONSULTATION DURING THIS ADMISSION: Surgery was consulted and patient was seen by Dr. Doss. INVASIVE PROCEDURES DONE: None. IMAGING STUDIES OF SIGNIFICANCE: 1. A CT scan of the head and spine without contrast showed no hemorrhage, no brain injury, C- spine with no fracture. 2. A chest CT scan showed a small sternal fracture, cardiomegaly with small effusions, tiny nonspecific scattered lung nodules. 3. A maxillofacial CT scan showed no acute bony abnormality. The right shoulder showed no evidence of fracture or dislocation. An echocardiogram showed an ejection fraction of 65%. No regional wall abnormality. 4. A renal ultrasound showed no evidence of obstructive uropathy, medical renal disease, or right pleural effusion. ADMISSION DIAGNOSES: 1. Fall. 2. Small sternal fracture. 3. Hypertension. 4. History of atrial fibrillation. DIAGNOSES AT THE TIME OF DISCHARGE: 1. Status post mechanical fall resulting in a small sternal fracture. 2. Hypertension. 3. Clinical volume depletion, improved. 4. Acute on chronic renal failure. 5. Left knee osteoarthritis. 6. Chronic atrial fibrillation, rate controlled. 7. Macrocytosis with folate deficiency. 8. Constipation. DISCHARGE MEDICATIONS: 1. Cetirizine 10 mg p.o. daily. 2. Coumadin 3 mg p.o. daily. 3. Nebivolol 20 mg p.o. daily. 4. Digoxin 125 mcg p.o. daily. 5. MiraLAX. 6. Tippo. 7. Diltiazem 120 p.o. daily. PRESENTING COMPLAINT: Status post fall. HISTORY OF PRESENTING COMPLAINT: Ms. Portillo is an 89-year-old elderly female who normally uses a walker for ambulation because of severe osteoarthritis. She presented to the emergency department after she fell at home sustaining a blunt injury to the chest and around the eye. She denied passing out or losing any consciousness. After presenting to the emergency department, she was evaluated. Imaging studies were done and she was found to have a blunt trauma to chest with small sternal fracture. She was admitted for further medical care. HOSPITAL COURSE: Ms. Portillo was admitted to the medical floor, was adequately fluid resuscitated and pain was managed. She was seen by Surgery. The sternal fracture was evaluated. Recommendation was to keep just conservative management. She did not have any other secondary traumatic injury. During the hospital course, however Ms. Portillo went into mild rapid ventricular response on her atrial fibrillation. She was started on digoxin and diltiazem. Her pulse has significantly maintained and the rate controlled. Ms. Portillo also was found to be dehydrated. She does have a chronic kidney failure with a creatinine baseline of about 1.1 to 1.3 to 1.6. However, during the hospital course, it had gone up to 1.9. We thought part of it was because she was dry and the other part was that she was on Lasix and enalapril, so these 2 medications were withheld and she was hydrated. This morning her repeat creatinine is down to 1.6 which is the same she had in 2018. We think she is now back to her baseline. She has been advised to continue adequate oral hydration. Her Lasix and her enalapril have been withheld until she follows up with her primary care doctor with a repeat BMP. Ms. Portillo is clinically stable. She is currently asymptomatic except for mild chest pain from where the fracture is; otherwise unremarkable. Her current vitals blood pressure 137/80, pulse is 84, respiration is 18, temperature 98.5 degrees. Her physical exam for the most part is unremarkable. She is being discharged in fairly stable condition. Time spent for discharge is 38 minutes. cc: MD Abad Dunaway MD MTDD
--- NOTE | 2019-10-06 15:15 | GENERAL SURGERY PROGRESS NOTE ---
DATE: 10/06/2019 SUBJECTIVE: Patient seems to be doing okay. She has had a little bit of chest discomfort. OBJECTIVE: Vital Signs: Patient is currently afebrile. Vital signs are stable. General: No acute distress. Cardiovascular: Regular rate and rhythm. Lungs: Grossly clear. Chest wall with some discomfort. Abdomen: Benign. ASSESSMENT AND PLAN: An 89-year-old female status post blunt trauma to the chest, status post fall from standing with sternal fracture. Blunt chest trauma. At this time, seems to be doing well. We will continue to monitor while she is in the hospital. Disposition per the hospitalist. cc: Abad Doss MD
--- NOTE | 2019-10-23 16:39 | PROGRESS NOTE ---
DATE: 10/23/2019 Ms. Tammie Portillo is currently after rehab, I think in [place], and I understand she has been having a little bit of swelling, so she was sent to [facility]. We have been called because the ER physician over there, Dr. Hurley, thinks that the patient needs to be transferred over here for higher level of care. He told me that he has already reached out to Dr. Bryant, the sheep killer, and he has already been given recommendations. However, the hospitalist does not feel comfortable keeping the patient over there. According to him, Dr. Bryant did not accept the patient to our facility. He gave the recommendations so they will be able to take care of the patient over there. Dr. Hurley tells me that Ms. Portillo' creatinine has gone up to 2.8 and that her albumin is also low, and she has put on about 3 pounds of weight, and the family is concerned. I did open the chart and told him that on 10/04 Ms. Portillo had an ultrasound with us which showed no evidence of obstructive uropathy and that her discharge creatinine was 1.6, discharge BUN was 59, and that her albumin was 2.2 to 2.3, and that I do agree with the recommendation given by Dr. Bryant that the patient will need albumin with Lasix, repeat the ultrasound, and then monitor her, and if there is any change, then they should call us back. Dr. Hurley did not seem to be very satisfied with the recommendation. He thought that we refused the patient. I did reiterate that we have not refused the patient; we think that basic workup can be done over there and that at any point if he still thinks that the patient needs a nephrology evaluation, he should call back to Dr. Bryant, and once Dr. Bryant accepted the patient, we have no problem to get her here. cc: Yariel Freitas MD
== END 2019-10-06 15:20 | DRG 565 ==
LOC: P.ED 15:29 → SUATTDRO 21:06 → P.MEDSURG 21:06 → 4N 09-30 16:40
PROVIDERS: ATTEND Internal Medicine